=== PATIENT | male | born 1935 | race Caucasian/White ===

== ENCOUNTER → 2017-03-11 | Outpatient (CLI) | payer OTHER ==
[~2017-03-11] MED LIST: 00186-0370-20 IH; ALBUTEROL0.83 MG/ML IH; ANTIVERT 25MG25 MG PO; ASPIRIN 81M81 MG/TA2 PO; BIAXIN 500MG T500 MG PO; CLARITIN 1010 MG/TAB PO; COMPLETE SENIOR1 TA1 PO; COREG12.5 MG PO; COZAAR 50MG50 MG/TAB PO; DESYREL 100MG100 MG PO; FERROUS SULFATE65 MG PO; FLOMAX 0.40.4 MG/CAP PO; FOLIC ACID 40400 MCG PO; IRON65 M1 PO; LEVAQUIN 5500 MG/TA1 PO; LOMOTIL 0.025 M1 TAB PO; LOPRESSOR 225 MG/TAB PO; MUCINEX DM 30 M1 TE1; MULTIPLE VITAMI1 CAP PO; NORCO 325 MG-51 TAB PO; NORCO 325 MG-7.1 TAB PO; OMEGA-3 1000 MG1 CAP PO; OXECTA5 MG PO; PREDNISONE20 MG PO; PROAIR HFA0.09 MG/AC IH; PROMETHAZINE V473 M2 PO; PROVENTIL0.09 MG/A1 IH; PROVENTIL0.09 MG/A1 INH; RAPAFLO8 MG PO; ROXICODONE 55 MG/TAB PO; RT ADVAIR HFA 1112 G IH; TUSS PO; TUSSIN DM 10 M118 ML PO; TYLENOL EXTRA500 M1 PO; UROXATRAL10 M1 PO; VICKS VAPORUB 41 OIN TP; VITAMIN B122500 MCG SL; VITAMIN C PUR1000 MG PO; VITAMIN D32000 I1 PO; VITAMINC1000TA PO; XARELTO10 MG PO; ZYRTEC 10MG10 MG PO
== END ==
LOC: BHSO 08:57
DX: F33.1 Major depressive disorder, recurrent, moderate (principal)

== ENCOUNTER 2017-03-21 05:37 | Observation (INO) | payer MEDICARE ==
[2017-03-21] VITALS (11 sets, daily range): BP systolic 139–169; BP diastolic 54–85; PULSE 70–107; TEMP 97.4–98.7
[~2017-03-21] VITALS: Ht 188 cm; Wt 111.4 kg
[~2017-03-21 05:37] MED LIST changes: -ALBUTEROL0.83 MG/ML IH; -CLARITIN 1010 MG/TAB PO; -COMPLETE SENIOR1 TA1 PO; -FERROUS SULFATE65 MG PO; -OMEGA-3 1000 MG1 CAP PO; -PROAIR HFA0.09 MG/AC IH; -UROXATRAL10 M1 PO; -VICKS VAPORUB 41 OIN TP; -VITAMIN B122500 MCG SL; -VITAMIN D32000 I1 PO; -VITAMINC1000TA PO
[2017-03-21] MEDS ORDERED: VITAMIN B122500 MCG SL (06:49)
[2017-03-21] MEDS ORDERED: OMEGA-3 1000 MG1 CAP PO (06:50)
[2017-03-21] MEDS ORDERED: COMPLETE SENIOR1 TA1 PO (06:50)
[2017-03-21] MEDS ORDERED: VITAMIN D32000 I1 PO (06:51)
[2017-03-21] MEDS ORDERED: VITAMINC1000TA PO (06:51)
[2017-03-21] MEDS ORDERED: ASPIRIN 81M81 MG/TA2 PO (06:52)
[2017-03-21] MEDS ORDERED: FERROUS SULFATE65 MG PO (06:52)
[2017-03-21] MEDS ORDERED: CLARITIN 1010 MG/TAB PO (06:53)
[2017-03-21] MEDS ORDERED: UROXATRAL10 M1 PO (06:53)
[2017-03-21] MEDS ORDERED: VICKS VAPORUB 41 OIN TP (06:53)
[2017-03-21] MEDS ORDERED: ALBUTEROL0.83 MG/ML IH (06:54)
[2017-03-21] MEDS ORDERED: PROAIR HFA0.09 MG/AC IH (06:56)
[2017-03-22 02:52] VITALS: BP 112/61; PULSE 73; TEMP 98.6
[2017-03-22 04:49] VITALS: BP 127/60; PULSE 94; TEMP 98.6
[2017-03-22 09:34] VITALS: BP 132/69; PULSE 82; TEMP 97.8
[2017-03-22 13:45] VITALS: BP 104/52; PULSE 74; TEMP 97.7
[2017-03-22 17:37] VITALS: BP 126/55; PULSE 75; TEMP 98.1
[2017-03-22 21:35] VITALS: BP 133/55; PULSE 70; TEMP 97.6
[2017-03-23 06:17] VITALS: BP 162/77; PULSE 80; TEMP 95.6
[2017-03-23 09:25] VITALS: BP 133/69; PULSE 71; TEMP 97.5
== END 2017-03-23 14:13 | disposition home or self-care (01) ==
LOC: SDCO 05:37 → SURG 09:40 → SDCO 03-22 10:03 → SURG 03-22 11:05
DX: N40.1 Benign prostatic hyperplasia with lower urinary tract symptoms (principal); N13.8 Other obstructive and reflux uropathy; R33.9 Retention of urine, unspecified
CPT/HCPCS: OP; G0378; J0690; J1100; J2270; J2704; J3010; J7120

== ENCOUNTER → 2017-04-01 | Outpatient (CLI) | payer MEDICARE ==
[~2017-04-01] MED LIST changes: +ALBUTEROL0.83 MG/ML IH; +CLARITIN 1010 MG/TAB PO; +COMPLETE SENIOR1 TA1 PO; +FERROUS SULFATE65 MG PO; +OMEGA-3 1000 MG1 CAP PO; +PROAIR HFA0.09 MG/AC IH; +UROXATRAL10 M1 PO; +VICKS VAPORUB 41 OIN TP; +VITAMIN B122500 MCG SL; +VITAMIN D32000 I1 PO; +VITAMINC1000TA PO
== END ==
LOC: BHSO 10:07
DX: F33.1 Major depressive disorder, recurrent, moderate (principal)

== ENCOUNTER → 2017-06-03 | Outpatient (CLI) | payer MEDICARE | LOC: BHSO 10:32 | DX: F41.1 Generalized anxiety disorder (principal) ==

== ENCOUNTER → 2019-07-14 | Outpatient (CLI) | payer MEDICARE | LOC: COL.RAD 07-08 09:45 | DX: G31.9 Degenerative disease of nervous system, unspecified (principal); I67.82 Cerebral ischemia; F03.90 Unspecified dementia, unspecified severity, without behavioral disturbance, psychotic disturbance, mood disturbance, and anxiety ==

== ENCOUNTER → 2021-03-20 | Outpatient (CLI) | payer MEDICARE ==
[~2021-03-20] VITALS: Ht 188 cm; Wt 108.1 kg
[~2021-03-20] MED LIST changes: +ALEVE 220MG220 MG PO; +ARICEPT10 MG PO; +ASTELIN NASAL S34 ML NS; +CENTRUM SILVER1 TAB PO; +EPA FISH OIL1 SGL PO; +IRON TABLETS325 MG PO; +LOTEPREDNOL OP; +MASON NATURAL2000 IU PO; +NAMENDA 10MG TA10 MG PO; +TOBRAMYCIN OP; +TRELEGY ELLIPT1 EACH IH; +VITAMIN B12 681 TAB PO
[2021-03-20 12:51] VITALS: BP 149/78; PULSE 58
[2021-03-20 14:30] VITALS: BP 138/80; PULSE 88
== END ==
LOC: COL.RAD 12:11
DX: M48.061 Spinal stenosis, lumbar region without neurogenic claudication (principal); M51.36 Other intervertebral disc degeneration, lumbar region
CPT/HCPCS: A9585; J2704